=== PATIENT | male | born 1985 | race Caucasian/White ===

== ENCOUNTER 2020-08-19 21:04 | Emergency (ER) | payer MEDICAID, SELFPAY ==
[2020-08-19 21:26] VITALS: BP 138/87; PULSE 82; RESP 16; TEMP 37.3; O2SAT 98; BMI 30.8
[2020-08-19] MEDS: Acetaminophen 325 MG TABLET 975 MG PO (22:02)
[2020-08-19] MEDS: Ibuprofen 400 MG TABLET PO (22:02)
--- NOTE | 2020-08-19 22:03 | ED_ITS ---
HPI - Wound/Laceration General Chief Complaint: Head Injury Stated Complaint: lac Time Seen by Provider: 08/19/20 21:42 Source: patient Mode of arrival: ambulatory History of Present Illness HPI narrative: 35-year-old male who presents after having stood up and hitting his head on a metal mailbox with subsequent laceration to the top scalp that has stopped bleeding at this time. Patient denies use of blood thinners or loss of consciousness. Patient denies any additional dizziness, headache, nausea. Related Data Allergies Allergy/AdvReac Type Severity Reaction Status Date / Time No Known Allergies Allergy Unverified 08/19/20 21:42 Review of Systems Review of Systems: Pertinent positives and negatives as stated in HPI 10 point review of systems otherwise negative. [facility] Past Medical History Source: nursing notes reviewed Medical History No known health problems Social History Social History Advance Directives: No Physical Exam Vital Signs: Vital Signs: Last Vital Signs Temp 99.1 F 08/19/20 21:26 Pulse 82 08/19/20 21:26 Resp 16 08/19/20 21:26 BP 138/87 08/19/20 21:26 Pulse Ox 98 08/19/20 21:26 Body Mass Index 30.8 VITAL SIGNS: Reviewed. GENERAL: Well developed, well nourished, in no acute distress. HEAD: Normocephalic/superficial laceration to the left apex scalp, hemostatic EYES: PERRLA, EOMI intact without pain, no nystagmus EARS: Ext canals without abnormality NOSE: Nares patent bilateral OROPHARYNX: no oral lesions noted, posterior pharynx clear NECK: Supple, no adenopathy LUNGS: Normal breath sounds. No adventitious sounds or accessory muscle use. SpO2<98> CARDIOVASCULAR: Regular rate and rhythm without noted murmurs ABDOMEN: Soft, non-tender, non-distended with bowel sounds. Course Course Course Narrative: 35-year-old male with history and clinical presentation consistent with superficial laceration that does not require william, Steri- Strips, Dermabond and will be treated with bacitracin and Band-Aid. Patient was informed that he would have a scar and he acknowledged that that is fine. Patient will also receive tetanus and be discharged in stable condition. Discharge Plan Discharge Clinical Impression: Laceration Patient Disposition: Home, Self-Care Instructions: Head Laceration (ED), Laceration Without Closure (ED) Additional Instructions: 1. Resume any home medications that you have been prescribed. 2. You may cleanse the area with soap and water and blot dry with re-application of antibiotic ointment covered by a Band-Aid. 3. Follow-up with your primary care provider in 2-3 days for re-evaluation. Return to the ER for any acute worsening of symptoms. Referrals: Ankush Mckinney MD [Primary Care Provider] - 2 days (Re-evaluation of some show laceration to top of head. Patient received Tdap and treated with bacitracin/Band-Aid)
[2020-08-19] MEDS: Diphth,Pertus(ACell),Tet Adult 0.5 ML SYRINGE IM (22:13)
[2020-08-19] MEDS: Bacitracin Oint 14 GM TUBE 1 APPL TOPICAL (22:14)
== END 2020-08-19 22:19 | disposition home or self-care (01) ==
PROVIDERS: Emergency Provider Student in an Organized Health Care Education/Training Program; PCP Internal Medicine
DX: S01.01XA Laceration without foreign body of scalp, initial encounter (principal); W22.8XXA Striking against or struck by other objects, initial encounter; Y93.89 Activity, other specified; Y92.096 Garden or yard of other non-institutional residence as the place of occurrence of the external cause; Y99.9 Unspecified external cause status
CPT/HCPCS: 90471; 90715; 99284

== ENCOUNTER 2020-10-14 11:18 | Outpatient (REF) | payer MEDICAID, SELFPAY ==
--- NOTE | ~2020-10-14 | XR_ITS ---
EXAMINATION: XR SHOULDER, RIGHT CLINICAL INFORMATION: Acute pain right shoulder COMPARISON: None TECHNIQUE: AP external rotation, Grashey, scapular Y, and axillary views of the right shoulder. FINDINGS: The bones and soft tissues are normal. No fracture. Glenohumeral and acromioclavicular alignment is anatomic with normal joint space. No abnormal soft tissue calcifications. XR/XR shoulder RT min 2V IMPRESSION: Normal right shoulder.
== END 2020-10-14 11:19 | disposition home or self-care (01) ==
LOC: HO.XRAY 11:18
PROVIDERS: PCP Internal Medicine; Visit Provider Internal Medicine
DX: M25.511 Pain in right shoulder (principal)
CPT/HCPCS: 73030